=== PATIENT | male | born 1960 | race Caucasian/White ===

== ENCOUNTER 2022-06-24 15:37 | Inpatient (IN) | payer MEDICAID, OTHER ==
[~2022-06-24] VITALS: Ht 177.8 cm; Wt 77.8 kg
[2022-06-24] MEDS ORDERED: VANCOMYCIN 1GM/250ML 250 ML IV ONE (19:45)
[2022-06-24] MEDS ORDERED: SODIUM CHLORIDE 0.9% 1,000 ML IV ONE (19:45)
[2022-06-24] MEDS ORDERED: methylPREDNISolone SOD SUCC 125 MG/2 ML VL IV ONE (19:45)
[2022-06-24] MEDS ORDERED: PIPERACILLIN-TAZOB 3.375GM 100 ML IV ONE (19:45)
[2022-06-24 20:39] LABS: Basophils # (auto) 0.1 10 ^3/uL (0-0.2); Eosinophils # (auto) 0.1 10 ^3/uL (0-0.8); Red Cell Distribution Width 14.4 % (11.8-14.3)
[2022-06-24 20:41] LABS: Basophils % (auto) 0.5 % (0.0-2.0); Eosinophils % (auto) 0.4 % (0.0-7.0); Hematocrit 39.9 % (41.0-53.0); Hemoglobin 13.7 g/dL (13.5-17.5); Lymphocytes # (auto) 3.1 10 ^3/uL (0.4-5.4); Lymphocytes % (auto) 21.6 % (10.0-50.0); Mean Corpuscular Hemoglobin 31.8 pg (28.0-32.0); Mean Corpuscular Hgb Conc. 34.3 g/dL (32.0-36.0); Mean Corpuscular Volume 92.8 fL (80.0-100.0); Monocytes # (auto) 1.3 10 ^3/uL (0-1.3); Monocytes % (auto) 9.1 % (0.0-12.0); Neutrophils # (auto) 9.7 10 ^3/uL (1.6-8.6); Neutrophils % (auto) 68.4 % (37.0-80.0); Nucleated Red Blood Cells % 0.2 %; White Blood Cell 14.2 10^3/uL (4.4-10.8)
[2022-06-24 21:00] LABS: BUN/Creatinine Ratio 10.7; Calcium 9.2 mg/dL (8.5-10.1); Potassium 4.1 mmol/L (3.5-5.1)
[2022-06-24 21:09] LABS: Total Protein 7.4 g/dL (6.4-8.2)
[2022-06-24] MEDS ORDERED: ONDANSETRON HCL 4 MG/2 ML VIAL IV PRN (21:15)
[2022-06-24] MEDS ORDERED: MAALOX PLUS or MAALOX 30 ML PO PRN (21:15)
[2022-06-24] MEDS ORDERED: DOCUSATE SOD 100 MG CAP PO PRN (21:15)
[2022-06-24] MEDS ORDERED: HYDROcodone-ACET 5/325MG TAB PO PRN (21:15)
[2022-06-24] MEDS ORDERED: LORazepam 0.5 MG TAB PO PRN (21:15)
[2022-06-24] MEDS ORDERED: SODIUM CHLORIDE 0.9% 1,000 ML IV SCH (21:15)
[2022-06-24] MEDS ORDERED: TEMAZEPAM 15 MG CAP PO PRN (21:15)
[2022-06-24] MEDS ORDERED: ACETAMINOPHEN 325 MG TAB PO PRN (21:15)
[2022-06-25] MEDS: MORPHINE SULFATE INJ 2 MG/ml SYRG IV PRN ×2 (00:08→05:37)
[2022-06-25 05:24] LABS: Basophils # (auto) 0 10 ^3/uL (0-0.2); Basophils % (auto) 0.2 % (0.0-2.0); Eosinophils # (auto) 0 10 ^3/uL (0-0.8); Hematocrit 35.8 % (41.0-53.0); Hemoglobin 12.2 g/dL (13.5-17.5); Lymphocytes # (auto) 1.5 10 ^3/uL (0.4-5.4); Mean Corpuscular Hemoglobin 31.6 pg (28.0-32.0); Mean Corpuscular Hgb Conc. 34.1 g/dL (32.0-36.0); Mean Corpuscular Volume 92.6 fL (80.0-100.0); Monocytes # (auto) 0.2 10 ^3/uL (0-1.3); Monocytes % (auto) 1.6 % (0.0-12.0); Neutrophils # (auto) 11.9 10 ^3/uL (1.6-8.6); Neutrophils % (auto) 87.2 % (37.0-80.0); Red Blood Cells 3.87 10^6/uL (4.5-5.90); Red Cell Distribution Width 14.7 % (11.8-14.3); White Blood Cell 13.6 10^3/uL (4.4-10.8)
[2022-06-25 05:36] LABS: Calcium 8.5 mg/dL (8.5-10.1); Potassium 3.9 mmol/L (3.5-5.1)
[2022-06-25 05:38] LABS: BUN/Creatinine Ratio 12.3
[2022-06-25] MEDS: predniSONE 20 MG TAB PO SCH (10:34)
[2022-06-25] MEDS: cefTRIAXone 1GM/50ML D5W 50 ML IV SCH (10:48)
[2022-06-25] MEDS: AZITHROMYCIN 500MG/ 250ML 250 ML IV SCH (13:33)
[2022-06-25 17:52] VITALS: BP 132/82
[2022-06-25 22:00] VITALS: BP 105/66
[2022-06-26 05:00] VITALS: BP 106/78
[2022-06-26] MEDS: predniSONE 20 MG TAB PO SCH (09:38)
[2022-06-26] MEDS: cefTRIAXone 1GM/50ML D5W 50 ML IV SCH (09:38)
[2022-06-26] MEDS ORDERED: DOXY-340 PO (10:11)
[2022-06-26] MEDS ORDERED: PRED20TA2 PO (10:11)
[2022-06-26] MEDS ORDERED: ALBUAER3 IN (10:11)
[2022-06-26] MEDS ORDERED: TIOT1AER2 IN (10:11)
[2022-06-26] MEDS: AZITHROMYCIN 500MG/ 250ML 250 ML IV SCH (10:30)
[2022-06-26 13:00] VITALS: BP 147/99
[2022-06-26 13:42] VITALS: BP 106/78
== END 2022-06-26 14:13 | disposition home or self-care (01) | DRG 139 ==
LOC: ER 15:37 → OVERFLOW 21:22 → CENTRAL 06-25 16:50
PROVIDERS: ADMIT Hospitalist; ATTEND Student in an Organized Health Care Education/Training Program
DX: J18.9 Pneumonia, unspecified organism (principal); J96.91 Respiratory failure, unspecified with hypoxia; Z20.822 Contact with and (suspected) exposure to COVID-19; Z87.891 Personal history of nicotine dependence
CPT/HCPCS: 36415; 71045; 80048; 80053; 84484; 85025; 85379; 87040; 87426; 87804; 96361; 96365; 96367; 96375; G0378; J0696; J2543